=== PATIENT | female | born 1995 | race Caucasian/White ===

== ENCOUNTER 2016-12-05 16:26 | Emergency (ER) | payer SELFPAY ==
[2016-12-05 16:42] VITALS: BP 148/98; PULSE 100; RESP 18; TEMP 97.5; O2SAT 95
--- NOTE | 2016-12-05 16:51 | EDPHY ---
H & P Time Seen by Provider: 12/05/16 16:36 HPI/ROS: HPI Head injury. 20-year-old female by private vehicle. She was at a football game [place] [employer]. She has been drinking alcohol. She reports that she tripped on a curb and fell backwards striking the left back side of her head. She sustained a laceration to this area. She denies any loss of consciousness. She has not had any vomiting. Denies any confusion. No neck pain. No other complaints. ROS: Constitutional: No fever, no chills. No weakness. Eyes: No discharge. No changes in vision. Cardiac: No chest pain, no palpitations. Gastrointestinal: No abdominal pain, no vomiting, no diarrhea. Musculoskeletal: No back pain. No neck pain. No extremity pain. Skin: No rashes. Neurological: No headache. No focal weakness or altered sensation. Past medical history: No significant past medical history. Social history: [employer]. Nonsmoker. Alcohol today. Physical Exam: General Appearance: Alert, no distress. This patient is responding to questions appropriately and in full sentences. This patient appears well- hydrated and well-nourished. Head: Normocephalic atraumatic except for a 3 cm, non gaping, left posterior parietal scalp laceration. No bony deformity or step-off noted on palpation of this area. Face: Facial bones are stable on palpation. Eyes: Pupils equal and round and reactive to light, no pallor or injection. No lid erythema or edema. ENT, Mouth: Mucous membranes moist. Dentition is intact. No malocclusion of the jaw. No tongue lacerations or abrasions. Pharynx is clear. The bilateral nasal canals are clear. No septal hematoma. Respiratory: There are no retractions, lungs are clear to auscultation with good air movement bilaterally. Chest wall is stable to AP and lateral palpation. Cardiovascular: Regular rate and rhythm. No murmur. Gastrointestinal: Abdomen is soft and nontender, no masses, bowel sounds normal. Neurological: Motor sensory function is intact. Cranial nerves are normal. Cerebellar function intact. Skin: Warm and dry, no rashes. No lacerations, abrasions or contusions. Musculoskeletal: Neck is supple and nontender. The trachea is midline. No midline cervical, thoracic, lumbar or sacral tenderness on palpation. No flank tenderness on palpation. Extremities are symmetrical, full range of motion. All joints in the bilateral upper and bilateral lower extremities range without pain or impingement. No tenderness on palpation of the long bones in the bilateral upper and bilateral lower extremities. Psychiatric: No agitation. No depression. Database: EKG: Imaging: CT scan of head without contrast: Negative. Results were discussed with staff radiologist Dr. Manoj Olmos. Procedures: Procedure: Laceration repair. Verbal consent was obtained from the patient. The 3 cm left posterior parietal scalp laceration was anesthetized in the usual fashion. The wound was irrigated , draped and explored to its base with a gloved finger. There were no deep structures involved. No foreign body was identified. The wound was repaired with 6, percutaneous surgical rosalee. The wound repair was tolerated well and there were no complications. The procedure was performed by myself. Emergency department course: Results of CT scan discussed with the patient. After suture repair of her scalp laceration as noted above wound care was discussed. Head injury precautions discussed. Her mental status has been appropriate in the emergency department. Neurologic exam is normal. She feels comfortable going home and I feel she is safe for discharge. Follow-up and return to emergency department precautions reviewed with her. Head injury precautions reviewed. All of her questions were answered. She was discharged in good condition. Differential Diagnosis: The differential diagnosis on this patient includes but is not limited to mechanical fall, scalp laceration, minor head injury. Traumatic brain injury, cervical spine injury, other significant traumatic injury unlikely. This represents a partial list of diagnoses considered. These considerations are based on history, physical exam, past history, reassessment and diagnostic testing. Smoking Status: Never smoked Constitutional: Initial Vital Signs Temperature (C) 36.4 C 12/05/16 16:40 Heart Rate 100 12/05/16 16:40 Respiratory Rate 18 12/05/16 16:40 Blood Pressure 148/98 H 12/05/16 16:40 O2 Sat (%) 95 12/05/16 16:40 O2 Delivery Mode Room Air Allergies/Adverse Reactions: No Known Allergies Allergy (Unverified 12/05/16 16:40) Home Medications: Medication Instructions Recorded Anxiety Pill 12/05/16 Control Pill 12/05/16 Medical Decision Making - Diagnostics Imaging Results: Imaging Impressions Head CT 12/05/16 16:47 Impression: Normal noncontrast CT of the brain. Results called to Dr. Lalo Flores at 5:25 PM at the time of the interpretation. Departure - Departure Disposition: Home, Routine, Self-Care Clinical Impression: Scalp laceration Condition: Good Instructions: Laceration (ED) Additional Instructions: Read and follow provided instructions. Surgical rosalee are to be removed from your scalp in 10 days. You can return here to have this done. Follow-up with your primary care physician in 1-2 days for re-evaluation as needed. Ibuprofen dosin mg every 6 hours with meals for the next 3 days only. Take only as needed for pain. Return to the emergency department for worsening headache, vomiting, confusion or other serious concerns. Referrals: [facility],. [Clinic] - As per Instructions
== END 2016-12-05 17:46 | disposition home or self-care (01) ==
PROC: 0HQ0XZZ Repair Scalp Skin, External Approach (ICD-10-PCS; principal; 2016-12-05)
DX: S01.01XA Laceration without foreign body of scalp, initial encounter (principal); W01.198A Fall on same level from slipping, tripping and stumbling with subsequent striking against other object, initial encounter; Y92.214 College as the place of occurrence of the external cause; Y99.8 Other external cause status; Y93.89 Activity, other specified